=== PATIENT | female | born 1955 | race Caucasian/White ===

== ENCOUNTER → 2016-12-08 | Outpatient (CLI) | payer MEDICARE, OTHER | LOC: EMI 11:00 | DX: M54.12 Radiculopathy, cervical region (principal); M50.30 Other cervical disc degeneration, unspecified cervical region; M99.71 Connective tissue and disc stenosis of intervertebral foramina of cervical region | CPT/HCPCS: 72141 ==

== ENCOUNTER → 2020-08-06 | Outpatient (CLI) | payer OTHER ==
[~2020-08-06] MED LIST: TESSALON PERLE100 MG PO; VENTOLIN HFA 66.7 GM INH
== END ==
LOC: MRI 12:40
DX: M47.22 Other spondylosis with radiculopathy, cervical region (principal); M48.02 Spinal stenosis, cervical region; E04.1 Nontoxic single thyroid nodule
CPT/HCPCS: 72156; 82565; A9577

== ENCOUNTER → 2020-09-26 | Outpatient (CLI) | payer OTHER | LOC: KOH-I 13:30 | DX: E04.1 Nontoxic single thyroid nodule (principal); E07.9 Disorder of thyroid, unspecified | CPT/HCPCS: 76536 ==

== ENCOUNTER → 2021-04-05 | Outpatient (CLI) | payer OTHER | LOC: MRI 13:00 | DX: M25.551 Pain in right hip (principal); Z96.642 Presence of left artificial hip joint | CPT/HCPCS: 73721 ==

== ENCOUNTER → 2022-01-24 | Outpatient (CLI) | payer OTHER | LOC: US 14:38 | DX: E04.2 Nontoxic multinodular goiter (principal) | CPT/HCPCS: 76536 ==